=== PATIENT | female | born 1960 | race Caucasian/White ===

== ENCOUNTER 2017-06-02 06:51 | Day surgery (SDC) | payer OTHER ==
--- NOTE | 2017-06-02 08:34 | Operative Note ---
Endoscopy Report Date: 06/02/17 Preoperative diagnosis: Screening Procedure Type of procedure: Total colonoscopy with polypectomy Indications: 56-year-old white female. She's undergone previous colonoscopy. Initial colonoscopy was unable to be performed in 2008 due to poor bowel preparation. 6 months later she underwent colonoscopy which revealed polyps. She had a follow-up colonoscopy which revealed poor bowel preparation polyps. She is essentially asymptomatic. She was sent for surgical consultation for colonoscopy. Consent was obtained the patient was taken to same-day surgery endoscopy procedure room. She was positioned in a lateral decubitus position. Adequate intravenous sedation was achieved. She was given 11 mg Versed and 200 g fentanyl titrated for the duration of the procedure. Variable stiffness Olympus colonoscope was inserted via the anus. With difficulty it was ultimately able to be advanced to the cecum. She had an almost and conceivably atonic and floppy colon. Colonic preparation was fair. Ileocecal valve and appendiceal orifice were identified. Colonoscope was withdrawn through the colon. Careful surveillance was carried out. Due to the atonic nature of the colon and fair preparation visualization was slightly suboptimal but thorough irrigation and suctioning was performed. Within the sigmoid colon there is a diminutive polyp removed with cold biopsy forceps. Retroflexion was formed within the rectum which revealed no evidence of any pathologic internal hemorrhoids. Colonoscope was withdrawn. Findings 1. Polyp Follow-Up Follow-Up: Follow-up on the pathology. Likely plan for follow-up colonoscopy in 5 years given the floppiness of the colon and suboptimal preparation. at [id number]
[2017-06-02 13:45] VITALS: BP 139/78
== END 2017-06-02 08:50 | disposition home or self-care (01) ==
LOC: SDC 06:51
PROVIDERS: Surgery
PROC: 0DBN8ZX Excision of Sigmoid Colon, Via Natural or Artificial Opening Endoscopic, Diagnostic (ICD-10-PCS; principal; 2017-06-02 07:30)
DX: Z12.11 Encounter for screening for malignant neoplasm of colon (principal); K63.5 Polyp of colon